=== PATIENT | male | born 1975 | race African-American/Black ===

== ENCOUNTER 2017-04-29 10:55 | Emergency (ER) | payer OTHER, SELFPAY ==
[2017-04-29] MEDS ORDERED: Ketorolac Tromethamine 30 MG/ML VIAL ONE ×2 (11:47→11:50)
--- NOTE | 2017-04-29 12:14 | RAD ---
LEFT ANKLE 3 VIEWS: HISTORY: Fall with injury to ankle. FINDINGS: No soft tissue swelling. No fracture. IMPRESSION: No acute abnormality. POS: [facility]
--- NOTE | 2017-04-29 12:20 | RAD ---
LEFT FOOT: Three views. HISTORY: Fell with injury to left foot. FINDINGS: Tarsals appear intact. Metatarsals and phalanges are intact. IMPRESSION: No acute fracture identified. POS: [facility]
== END 2017-04-29 12:08 | disposition home or self-care (01) ==
LOC: NAV ERS 10:55
DX: S93.402A Sprain of unspecified ligament of left ankle, initial encounter (principal); X50.9XXA Other and unspecified overexertion or strenuous movements or postures, initial encounter
CPT/HCPCS: 96372; J1885

== ENCOUNTER 2019-02-28 16:21 | Emergency (ER) | payer SELFPAY | END 2019-02-28 16:40 | LOC: NAV ERS 16:21 | DX: S40.022A Contusion of left upper arm, initial encounter (principal); F17.210 Nicotine dependence, cigarettes, uncomplicated; V49.9XXA Car occupant (driver) (passenger) injured in unspecified traffic accident, initial encounter | CPT/HCPCS: 99283 ==